=== PATIENT | male | born 1970 | race Two or more races ===

== ENCOUNTER 2024-06-09 11:12 | Emergency (ER) | payer OTHER, SELFPAY ==
[2024-06-09 11:17] VITALS: BP 153/95
[2024-06-09 11:47] LABS: APTT 26.8 Sec (23.4-35.0)
[2024-06-09 11:52] VITALS: BMI 31.2
[2024-06-09 11:53] VITALS: BP 127/82
[2024-06-09 11:57] LABS: ALT (SGPT) 28 U/L (0-50); AST (SGOT) 24 U/L (17-59); Albumin 4.6 g/dl (3.5-5.0); Alkaline Phosphatase 57 U/L (38-126); Blood Urea Nitrogen 13 mg/dl (9-20); Calcium 9.8 mg/dl (8.4-10.2); Carbon Dioxide 25 mmol/L (22-30); Chloride 103 mmol/L (98-107); Estimated Creatinine Clearance 116 ml/min; Glucose 113 mg/dl (70-99); Potassium 4.3 mmol/L (3.5-5.1); Sodium 138 mmol/L (135-145); Total Protein 7.3 g/dl (6.3-8.2); eGFR > 60.00
[2024-06-09 12:00] VITALS: BP 126/79
[2024-06-09 12:23] LABS: % Basophils 0.3 % (0-2); % Eosinophils 1.7 % (0-6); % Immature Granulocytes 0.7 % (0-0.5); % Lymphocytes 38.9 % (20.5-51.1); % Monocytes 7.3 % (1.7-9.3); % Neutrophils 51.1 % (42.2-75.2); Absolute Eosinophils 0.1 10^3/uL (0-0.7); Absolute Lymphocytes 2.3 10^3/uL (1.2-3.4); Absolute Monocytes 0.4 10^3/uL (0.1-0.6); Hematocrit 41.9 % (39.0-52.0); Hemoglobin 14.7 g/dL (13.0-18.0); Mean Corp Hgb Conc. 35.1 g/dL (33.0-37.0); Mean Corpuscular Hgb 30.7 pg (27.0-31.0); Mean Corpuscular Volume 87.5 fL (80.0-94.0); Mean Platelet Volume 9.5 fL (7.4-10.4); Nucleated Red Blood Cells % 0 % (-); Platelet Count 290 10^3/uL (130-400); Red Blood Cell Count 4.79 10^6/uL (4.70-6.10); Red Cell Dist. Width 12.4 % (11.5-14.5); White Blood Cell Count 5.8 10^3/uL (4.8-10.8)
--- NOTE | 2024-06-09 12:40 | ED.GENMED ---
History of Present Illness
General
Chief Complaint: Headache
Source: patient and family (Son at bedside is interpreting [employer])
Exam Limitations: none
Time Seen by Provider: 06/09/24 11:37
Nursing documentation reviewed up to this point in time: agreed with except (Pt had NO TBI, No neurosurgery. Had a scalp hematoma drained 14 months ago)
History of Present Illness
History of Present Illness:
54-year-old male with hx of HTN on Losartan K+, hx of scalp hematoma drained 14 months ago after standing up and striking right anterior scalp on a tree branch.
Presents for 3 days of constant posterior headache. Worse at night, better during the day.
Denies n/v. Denies change in vision, photophobia.
Denies recent head injury
Came from [facility] 10 months ago and now living with son who is at bedside and translating.
Past History
Past History
ED Past Medical History: HTN
ED Past Surgical History: Other (scalp hematoma drained)
Social History
Tobacco: Non-smoker
Alcohol: None
Personal:
Living: with family
Review of Systems
Review of Systems
Allergies reviewed?: Yes
All Other Systems: ROS reviewed and negative except as documented in HPI and ROS
Constitutional: Denies fever or fatigue
EENT: Reports other (denies vision changes); Denies sore throat
Respiratory: Denies trouble breathing
Cardiac: Denies chest pain
ABD/GI: Denies abdominal pain, nausea, vomiting or diarrhea
: Denies dysuria or difficulty voiding
Musculoskeletal: Reports no symptoms
Skin: Reports no symptoms
Neurological: Reports headache; Denies dizzy, weakness or numbness
Phy Exam
Physical Exam
Physical Exam:
GENERAL: No acute distress. A&Ox3.
CONSTITUTIONAL: Afebrile.
EYES: PERRL, conjunctivae normal
HEAD: N/C, A/T, nontender to palpation
Neck: Supple
ENMT: moist mucus membranes, Pharynx nl, TMs normal
RESPIRATORY: Regular respirations, nonlabored, lungs clear.
CARDIOVASCULAR: Regular rate and rhythm, no murmurs, no rubs.
GI: Soft, nontender, normal BS
MUSCULOSKELETAL: Moves with ease. Well perfused.
SKIN: Warm, dry, pink
PSYCH: Normal mood and affect. Well kept, interactive and appropriate
NEUROLOGIC: Awake, alert and oriented. Speech clear. Cranial nerves II through XII intact. Patient walks heel-to-toe steadily. Finger to nose intact. Neg Rhomberg. Strength equal throughout. No focal neurological deficits
Course
Orders/Labs/Results
Orders:
Orders
06/09/24 11:25
CMP [Comprehensive Metabolic Panel] Urgent
Complete Blood Count/With Diff Urgent
PTT Urgent
06/09/24 12:38
CT Head W/o Iv Contrast Urgent
Comment:
Reason For Exam: posterior headache 3 days
Ibuprofen [Motrin] 600 mg PO NOW STA
Abnormal Lab Results
06/09/24
11:25
Immature Gran % 0.7 H %
(0-0.5)
Glucose 113 H mg/dl
(70-99)
06/09/24 11:25
06/09/24 11:25
Vital Signs
Initial and Last Documented VS:
Initial Vital Signs
Temp Pulse Resp BP Pulse Ox
98.2 F 89 20 153/95 95
06/09/24 11:17 06/09/24 11:17 06/09/24 11:17 06/09/24 11:17 06/09/24 11:17
Last Documented Vital Signs
Temp Pulse Resp BP Pulse Ox
98.2 F 75 14 126/79 96
06/09/24 11:17 06/09/24 12:30 06/09/24 12:30 06/09/24 12:00 06/09/24 12:30
MDM/Problems Addressed
Differential Diagnosis Includes:
migraine, tension headache,ICH, mass
MDM/Problems Addressed:
54-year-old male with hx of HTN on Losartan K+, hx of scalp hematoma drained 14 months ago after standing up and striking right anterior scalp on a tree branch.
Presents for 3 days of constant posterior headache. Worse at night, better during the day.
Denies n/v. Denies change in vision, photophobia.
Denies recent head injury
Came from [facility] 10 months ago and now living with son who is at bedside and translating.
Neuro exam is normal
Head CT radiology report read: No acute abnormality.
Informed of neg CT scan
Pt states headache gone after Ibuprofen
Nonspecific H/A relieved with Ibuprofen
*Critical Care Note
Total Time (30-74mins, 75-104mins- exclusive of procedures): Not Applicable
ED Attending Note
-
Portions of this chart may have been created with voice recognition software.� Occasional wrong word or��sound alike� substitutions may have occurred due to the inherent limitations of voice recognition software.
Discharge Plan
Departure
Patient Disposition: Home (Routine Discharge)
Date of Disposition: 06/09/24
Time of Disposition: 13:34
Patient with high blood pressure during this ER visit?: No
Condition: Good
Discharge Problem:
Headache
Instructions: Headache, Adult (DC)
Referrals:
Shama Cadet, DO [Active] - Next open appointment
Activity Restrictions/Additional Instructions:
As we discussed, nothing worrisome in your workup here today.
Your blood work is all normal.
Your head CT is normal
Take ibuprofen 600 mg, with food, every 6 hours as needed for headache.
You may also use Tylenol 1000 mg every 6 hours if needed
So every 3 hours you may alternate the Ibuprofen and Tylenol
Return here immediately for worsening headaches despite Tylenol or Ibuprofen, headache associated with vomiting more than once in an hour, confusion, inability to walk straight or anything that worries you.
Call and make appointment with the Neurologist
Interventions
Interventions:
*Risk Screen - Suicide Last Done: 06/09/24 11:17
*General Assessment Last Done: 06/09/24 11:17
*Neglect/Abuse Screening Last Done: 06/09/24 11:17
ED- Fall Risk Assessment Last Done: 06/09/24 11:53
*ED COVID-19 Vaccine History Last Done: 06/09/24 11:53
*Nursing Disposition Last Done: 06/09/24 14:00
ED- Neurological Assessment Last Done: 06/09/24 11:53
Discharge Date and Time
Discharge Date/Time: 06/09/24 14:01
Print Language: KOREAN
[2024-06-09] MEDS: MOTRIN 600 MG PO (12:45)
== END 2024-06-09 14:01 | disposition home or self-care (01) ==
LOC: EMR 11:12
PROVIDERS: Emergency Medicine; EMERGENCY PHYSICIAN Emergency Medicine; FAMILY PHYSICIAN Family Medicine
DX: R51.9 Headache, unspecified (principal); I10 Essential (primary) hypertension; Z79.899 Other long term (current) drug therapy
CPT/HCPCS: 99284; 70450; 80053; 85025; 85730